=== PATIENT | female | born 1990 | race Hispanic/Latino ===

== ENCOUNTER 2019-03-18 16:40 | Emergency (ER) | payer OTHER ==
[2019-03-18 17:47] LABS: BASOPHILS % (AUTO) 0.2 % (0.0-5.0); EOSINOPHILS % (AUTO) 0.2 % (0.0-8.0); HEMATOCRIT 35.8 % (36-48); LYMPHOCYTES % (AUTO) 10.3 % (21.0-51.0); MEAN CORPUSCULAR HGB CONC 33.4 g/dL (32.0-36.0); MEAN CORPUSCULAR VOLUME 86.9 fL (79-99); MONOCYTES % (AUTO) 8.5 % (3.0-13.0); NEUTROPHILS % (AUTO) 80.8 % (40.0-77.0); PLATELET COUNT (AUTO) 175 K/uL (130-400); RED BLOOD CELL COUNT(AUTO) 4.12 MIL/uL (4.00-5.50); WHITE BLOOD COUNT (AUTO) 12.4 K/uL (4.8-10.8)
[2019-03-18 18:01] LABS: ALBUMIN 3.7 g/dL (3.5-5.0); CREATININE 0.6 mg/dL (0.5-1.5); TOTAL PROTEIN, SERUM 7.8 g/dL (6.0-8.3)
[2019-03-18 18:08] LABS: POTASSIUM 2.9 mmol/L (3.5-5.1)
[2019-03-18] MEDS ORDERED: IOHEXOL-350 50ML VIAL IV ONE (18:09)
[2019-03-18 18:10] LABS: APPEARANCE,URINE Clear (CLEAR); BILIRUBIN,URINE Negative (NEGATIVE); COLOR,URINE Yellow (YELLOW); GLUCOSE, URINE (UA) Negative (NEGATIVE); KETONES,URINE >=160 mg/dL (NEGATIVE); LEUKOCYTE ESTERASE ,URINE Negative (NEGATIVE); NITRATE,URINE Negative (NEGATIVE); OCCULT BLOOD,URINE Moderate (NEGATIVE); PH,URINE 5.5 (5.0-8.0); PROTEIN,URINE Negative (NEGATIVE)
[2019-03-18] MEDS ORDERED: POTASSIUM CHLORIDE 10% ELIXIR 20 MEQ/15 ML UDCUP ONE (18:16)
[2019-03-18 18:39] LABS: BACTERIA,URINE Few /HPF (None Seen); MUCUS,URINE Moderate LPF (None Seen); WBC,URINE None Seen /HPF (0-1)
[2019-03-18] MEDS ORDERED: MORPHINE SULFATE 4 MG/1ML SYG ONE (19:16)
[2019-03-18] MEDS ORDERED: CLINDAMYCIN 900 MG/D5% WATER 50 ML IV ONE (19:16)
[2019-03-18] MEDS ORDERED: ONDANSETRON HCL 4 MG/2 ML VIAL ONE (20:04)
== END 2019-03-18 20:34 | disposition home or self-care (01) ==
LOC: EDH 16:40
DX: K04.7 Periapical abscess without sinus (principal)
CPT/HCPCS: 36415; 70487; 80053; 81001; 81025; 85025; 87040; 96365; 96375; 99285; J2270; J2405; J3490; Q9967

== ENCOUNTER 2024-05-11 18:37 | Emergency (ER) | payer OTHER ==
[~2024-05-11] VITALS: Ht 152.4 cm; Wt 56.2 kg
[~2024-05-11 18:37] MED LIST: ACET-66 PO
[2024-05-11 19:23] LABS: APPEARANCE,URINE CLEAR (CLEAR); BILIRUBIN,URINE NEGATIVE (NEGATIVE); COLOR,URINE YELLOW (YELLOW); GLUCOSE, URINE (UA) NEGATIVE (NEGATIVE); KETONES,URINE NEGATIVE (NEGATIVE); LEUKOCYTE ESTERASE ,URINE TRACE Leu/uL (NEGATIVE); NITRATE,URINE NEGATIVE (NEGATIVE); OCCULT BLOOD,URINE MODERATE (NEGATIVE); PH,URINE 6.5 (5.0-8.0); PROTEIN,URINE NEGATIVE (NEGATIVE); UROBILINOGEN,URINE 0.2 mg/dL (0.2-1.0)
[2024-05-11 19:25] LABS: ADD UA MICROSCOPIC YES
[2024-05-11 19:27] LABS: MUCUS,URINE MANY LPF (None Seen); RBC,URINE 26-50 /HPF (0-1); SQUAMOUS EPITHELIAL CELL,UR MOD /HPF (0-2)
[2024-05-11 19:31] LABS: HCG,QUALITATIVE URINE NEGATIVE (NEGATIVE)
[2024-05-11] MEDS: CYCLOBENZAPRINE HCL 10 MG TABLET PO SCH (20:05)
[2024-05-11] MEDS: KETOROLAC 60 MG VIAL (30MG/ML) IM SCH (20:05)
[2024-05-11 20:11] VITALS: BP 107/65; PULSE 69; RESP 17; O2SAT 96
[2024-05-11] MEDS ORDERED: CYCL10TA16 PO (20:55)
[2024-05-11] MEDS ORDERED: CEPH500B PO (20:55)
[2024-05-11] MEDS ORDERED: IBUP-2070 PO (20:55)
== END 2024-05-11 21:08 | disposition home or self-care (01) ==
LOC: EDH 18:37
DX: N39.0 Urinary tract infection, site not specified (principal); M54.50 Low back pain, unspecified
CPT/HCPCS: 99283; 81001; 81025; 96372; J1885

== ENCOUNTER 2025-10-05 18:54 | Emergency (ER) | payer SELFPAY ==
[~2025-10-05] VITALS: Ht 152.4 cm; Wt 58.5 kg
[~2025-10-05 18:54] MED LIST changes: +CEPH500B PO; +CYCL10TA16 PO; +IBUP-1492 PO
[2025-10-05 18:57] VITALS: BP 115/52; PULSE 86; RESP 18; TEMP 98.2
[2025-10-05 19:15] LABS: IMMATURE GRANULOCYTE ABSOLUTE 0.02 K/uL (0-1); NUCLEATED RED BLOOD CELLS 0.0 % (0.0-0.19); PLATELET COUNT (AUTO) 225 K/uL (130-400); RED BLOOD CELL COUNT(AUTO) 4.15 MIL/uL (4.00-5.50); RED CELL DISTRIBUTION WIDTH 12.5 % (11.0-15.5); WHITE BLOOD COUNT (AUTO) 6.5 K/uL (4.8-10.8)
[2025-10-05 19:17] LABS: APPEARANCE,URINE CLEAR (CLEAR); GLUCOSE, URINE (UA) NEGATIVE (NEGATIVE); LEUKOCYTE ESTERASE ,URINE 25 Leu/uL (NEGATIVE); NITRATE,URINE NEGATIVE (NEGATIVE); OCCULT BLOOD,URINE SMALL (NEGATIVE)
[2025-10-05 19:18] LABS: ADD UA MICROSCOPIC YES
[2025-10-05 19:20] LABS: HCG,QUALITATIVE URINE NEGATIVE (NEGATIVE)
[2025-10-05 19:24] LABS: CREATININE 0.5 mg/dL (0.5-1.0); GLOMERULAR FILTR. RATE CALC 126.0 mL/min (>90); GLUCOSE,RANDOM 102.0 mg/dL (70-105); SODIUM SERUM 136.0 mmol/L (136-145); UREA NITROGEN, BLOOD 13.0 mg/dL (7-18)
[2025-10-05 19:27] LABS: SQUAMOUS EPITHELIAL CELL,UR Rare /HPF (0-2)
--- NOTE | 2025-10-05 20:15 | ERN ---
ED Note History of Present Illness Stated Complaint: ABD PAIN Chief Complaint: Abdominal Pain Time Seen by MD: 18:57 Time Seen by Midlevel: 18:57 Dictation: The patient is a 35-year-old female with a history of hypothyroidism who presents to the emergency department with complaints of pelvic pain, and some vaginal spotting onset a month ago. Patient denies any fevers, denies any nausea or vomiting, denies any flank pain. Allergies: Coded Allergies: No Known Allergies (Unverified Allergy, Unknown, 02/28/23) Uncoded Allergies: NKDA (Allergy, Unknown, 03/18/19) Home Meds Active Scripts Cephalexin Monohydrate (Keflex) 500 Mg Cap, 500 MG PO BID for 5 Days, #10 CAP Prov:ALFONSO MARTINS MD 05/11/24 Cyclobenzaprine HCl (Flexeril) 10 Mg Tab, 10 MG PO TID for muscle sstiffness, #14 TAB 0 Refills Prov:ALFONSO MARTINS MD 05/11/24 Ibuprofen (Ibuprofen) 600 Mg Tablet, 600 MG PO Q6H PRN for PAIN, #15 TAB Prov:ALFONSO MARTINS MD 05/11/24 Acetaminophen (Tylenol) 500 Mg Tab, 500 MG PO Q6HPRN PRN for PAIN LEVEL 1 TO 5 for 10 Days, #30 TAB Prov:TYE AIKEN MD 08/10/21 Past Medical History Past Medical History: Anxiety, Hypothyroid Surgical History: None History: Not Applicable LMP: Sep 20, 2025 : 3 Para: 3 Aborts: 0 RN Note Reviewed/Agreed w/PFSH: Yes Review of System Dictation Constitutional: Negative for fever,chills, and weight loss Eyes: Negative for injury, pain,redness, and discharge ENT: Negative for injury,pain or swelling Cardiovascular: Negative for chest pain, palpitations, and edema Respiratory: Negative for shortness of breath, cough, and wheezing, Abdomen/GI: Negative for nausea, vomiting, diarrhea, and constipation positive for lower abdominal pain Back: Negative for injury and pain : Negative for injury, bleeding and discharge MS/Extremity: Negative for injury and deformity Skin: Negative for rash, and discoloration Neuro: Negative for headache, weakness, numbness, tingling, and seizure Psych: Negative for suicide ideation, homicidal ideation, and hallucinations Initial Vital Sign VS Vital Signs Date Time Temp Pulse Resp B/P (MAP) Pulse Ox O2 Delivery O2 Flow Rate FiO2 10/05/25 18:57 98.2 86 18 115/52 99 Room Air 0 Physical Exam Dictation Vital Signs reviewed General Appearance: Alert, oriented x 3, no acute distress, well developed, nourished. Head and Face: non-traumatic. Eyes: PERRL, pink conjunctivas, eyelid no trauma, anterior chamber with arcus senilis. Ears: Pinnas intact and no signs of trauma or erythema ear canals clear and no discharge TM no erythema Nose: No discharge, no bleeding. Oropharynx: Mouth normal, tongue pink. pharynx clear,no erythema, tonsils no exudates, no abscesses noted, mucous membrane moist Neck: Supple, non-tender, no thyromegaly, no masses, no JVD, no bruits Breast:Deferred Chest:No tenderness, no crepitus, no paradoxical movement, no retractions Lungs:Clear, well-ventilated, symmetric, no rales, no wheezing, no rhonchi, no stridor, good breath sounds bilaterally Heart: Regular rate, regular rhythm, no murmur, no gallops Vascular: no peripheral edema, Abdomen: Soft, positive bowel sounds, nondistended, no guarding, nontender, no rebound, no masses no hepatomegaly, no splenomegaly, no Shields's sign, no hernias. Rectal: Deferred Genital: Deferred Neurological: Normal speech, motor function intact, sensory function intact Musculoskeletal: Neck nontender, full range of motion, back nontender, full range of motion, Extremities: nontender, full range of motion Skin: Color pink, dry, no turgor, no rash, no lacerations, no abrasions, no contusions. Lymphatic: Deferred Results (Laboratory/Radiology) Laboratory/Radiology Laboratory Tests Test 10/05/25 19:06 10/05/25 19:08 White Blood Count 6.5 K/uL (4.8-10.8) Red Blood Count 4.15 MIL/uL (4.00-5.50) Hemoglobin 12.1 g/dL (12.0-16.0) Hematocrit 36.5 % (36-48) Mean Corpuscular Volume 88.0 fL (79-99) Mean Corpuscular Hemoglobin 29.2 pg (27.0-33.0) Mean Corpuscular Hemoglobin Concent 33.2 g/dL (32.0-36.0) Red Cell Distribution Width 12.5 % (11.0-15.5) Platelet Count 225 K/uL (130-400) Mean Platelet Volume 10.8 fL (7.5-10.5) H Immature Granulocyte % (Auto) 0.3 % (0-1) Neutrophils (%) (Auto) 59.9 % (40.0-77.0) Lymphocytes (%) (Auto) 30.0 % (21.0-51.0) Monocytes (%) (Auto) 8.7 % (3.0-13.0) Eosinophils (%) (Auto) 0.8 % (0.0-8.0) Basophils (%) (Auto) 0.3 % (0.0-5.0) Neutrophils # (Auto) 3.9 K/uL (1.8-7.7) Lymphocytes # (Auto) 1.9 K/uL (1.0-4.8) Monocytes # (Auto) 0.6 K/uL (0.1-1.0) Eosinophils # (Auto) 0.05 K/uL (0.00-0.70) Basophils # (Auto) 0.02 K/uL (0.00-0.20) Absolute Immature Granulocyte (auto 0.02 K/uL (0-1) Nucleated Red Blood Cells 0.0 % (0.0-0.19) Sodium Level 136 mmol/L (136-145) Potassium Level 3.7 mmol/L (3.5-5.1) Chloride Level 101 mmol/L (101-111) Carbon Dioxide Level 28 mmol/L (21-32) Blood Urea Nitrogen 13 mg/dL (7-18) Creatinine 0.5 mg/dL (0.5-1.0) Glomerular Filtration Rate Calc 126 mL/min (>90) Random Glucose 102 mg/dL (70-105) Total Calcium 8.6 mg/dL (8.5-10.1) Urine Color LIGHT-YELLOW (YELLOW) Urine Appearance CLEAR (CLEAR) Urine pH 7.0 (5.0-8.0) Urine Specific [place] 1.024 (1.001-1.031) Urine Protein NEGATIVE mg/dL (NEGATIVE) Urine Glucose (UA) NEGATIVE mg/dL (NEGATIVE) Urine Ketones NEGATIVE mg/dL (NEGATIVE) Urine Occult Blood SMALL (NEGATIVE) H Urine Nitrate NEGATIVE (NEGATIVE) Urine Bilirubin NEGATIVE mg/dL (NEGATIVE) Urine Urobilinogen 3 mg/dL (0.2-1.0) H Urine Leukocyte Esterase 25 Lee/uL (NEGATIVE) H Urine RBC 2-5 /HPF (0-1) H Urine WBC 2-5 /HPF (0-1) H Urine Squamous Epithelial Cells Rare /HPF (0-2) Urine Bacteria Rare /HPF (None Seen) Urine HCG, Qualitative NEGATIVE (NEGATIVE) REASON: pelvic pain ORDERING PHYSICIAN: YVETTE MARTINS PROCEDURE: PELVCOMP - US PELVIC NON-OB COMP EXAMINATION: COMPLETE TRANSABDOMINAL ULTRASOUND OF PELVIS. CLINICAL HISTORY: Pain. COMPARISON: None provided. TECHNIQUE: Multiple real-time grayscale images of the pelvis were obtained with a transabdominal transducer. In addition, color Doppler is medically necessary to perform to assess for vascularity and blood flow. FINDINGS: The uterus is anteverted, normal in caliber, and measures 9.4 x 4.3 x 5.3 cm in the craniocaudal, AP, and transverse dimensions, respectively. The endometrium measures approximately 0.6 cm. Cervix appears normal. The right ovary is normal in caliber and measures 2.2 x 1.3 x 1.5 cm. There are multiple follicles; the largest measures 0.7 x 0.6 cm. The left ovary is normal in caliber and measures 2.2 x 1.3 x 1.7 cm. There are multiple follicles; the largest measures 0.6 x 0.6 cm. The vascularity of the ovaries is present; no torsion. There is no free fluid in the cul-de-sac. IMPRESSION: Bilateral ovarian follicular cysts. No acute process or ovarian torsion is evident. /[facility] Labs Reviewed?: Yes ED Course ED Course Orders Procedure Category Date Status Time Cbc With Differential LAB 10/05/25 Complete 18:58 ,Urine Test LAB 10/05/25 Complete 18:58 Urinalysis Profile LAB 10/05/25 Complete 18:58 Basic Metabolic Panel LAB 10/05/25 Complete 18:58 Acetaminophen 500mg PHA 10/05/25 Complete Tab (Tylenol 500mg T 19:00 Us Pelvic Non-Ob Comp US 10/05/25 Resulted 18:58 Current Medications Medications (Trade) Dose Ordered Sig/Swapnil Route PRN Reason Start Time Stop Time Status Last Admin Dose Admin Acetaminophen (TYLenol 500MG TAB) 1,000 mg ONCE ONCE PO 10/05/25 19:00 10/05/25 19:01 DC 10/05/25 20:06 Vital Signs Date Time Temp Pulse Resp B/P (MAP) Pulse Ox O2 Delivery O2 Flow Rate FiO2 10/05/25 18:57 98.2 86 18 115/52 99 Room Air 0 Medical Decision Making MDM The patient is a 35-year-old female with a history of hypothyroidism who presents to the emergency department with complaints of pelvic pain, and some vaginal spotting onset a month ago. Patient denies any fevers, denies any nausea or vomiting, denies any flank pain. CBC showed no leukocytosis, no anemia, chemistry showed no electrolyte imbalance, urinalysis showed small leukocyte and wbc. OB US showed bilateral ovarian follicular cyst. No ovarian torsion. On physical exam patient is in no acute distress, non toxic appearance, soft nontender abd. Patient will be discharge to follow up with PCP and obgyn. Differential diagnosis: UTI, , uterine fibroids, ovarian cyst Need for hospitalization: Patient does not meet criteria for hospitalization. There are no social concerns with this patient. DX & DISP Disposition: Discharge Departure Impression: Primary Impression: Follicular cyst of both ovaries Additional Impressions: UTI (urinary tract infection), Pelvic pain Condition: Stable Scripts Ibuprofen (Ibuprofen) 600 Mg Tablet 1 TAB PO TID for pain for 5 Days, #30 TAB 0 Refills with food Prov: YVETTE MARTINS [employer] DEVELOPER 10/05/25 Nitrofurantoin Monohyd/M-Cryst (Macrobid 100 mg Capsule) 100 Mg Capsule 1 CAP PO BID for 5 Days, #10 CAP 0 Refills Prov: YVETTE MARTINS 10/05/25 Additional Instructions: FOLLOW-UP WITH PRIMARY CARE PROVIDER IN 1 TO 2 DAYS. TAKE MEDICATIONS DIRECTED HERE IN THE EMERGENCY ROOM. OKAY TO CONTINUE HOME MEDICATIONS UNLESS OTHERWISE DISCUSSED DURING YOUR VISIT IN THE EMERGENCY ROOM TODAY. RETURN TO YOUR NEAREST EMERGENCY ROOM IF SYMPTOMS WORSEN OR IF THERE IS NO IMPROVEMENT. CALL 911 IF YOU NEED IMMEDIATE ASSISTANCE. TAKE TYLENOL [id number] NEEDED AND IF NO CONTRAINDICATIONS ARE PRESENT. INCREASE ORAL HYDRATION. A WOUND CULTURE OR URINE CULTURE WAS ORDERED HERE IN THE EMERGENCY ROOM DEPARTMENT PLEASE FOLLOW-UP WITH PRIMARY CARE PROVIDER AND ADVISE THEM TO GET REPEAT PORTS FROM OUR FACILITY. IF YOU HAD ANY EUN WRAP/SPLINTS THAT WERE APPLIED HERE, PLEASE DO NOT REMOVE THEM UNTIL YOU SEE YOUR PRIMARY CARE OR SPECIALTY. Referrals: SELF,REFERRAL (PCP) Time of Disposition: 20:51 I have reviewed the case, and I agree with, Diagnosis and Plan YVETTE MARTINS [employer] DEVELOPER Oct 05, 2025 20:15
--- NOTE | 2025-10-05 20:36 | HMCIMG ---
EXAMINATION: COMPLETE TRANSABDOMINAL ULTRASOUND OF PELVIS. CLINICAL HISTORY: Pain. COMPARISON: None provided. TECHNIQUE: Multiple real-time grayscale images of the pelvis were obtained with a transabdominal transducer. In addition, color Doppler is medically necessary to perform to assess for vascularity and blood flow. FINDINGS: The uterus is anteverted, normal in caliber, and measures 9.4 x 4.3 x 5.3 cm in the craniocaudal, AP, and transverse dimensions, respectively. The endometrium measures approximately 0.6 cm. Cervix appears normal. The right ovary is normal in caliber and measures 2.2 x 1.3 x 1.5 cm. There are multiple follicles; the largest measures 0.7 x 0.6 cm. The left ovary is normal in caliber and measures 2.2 x 1.3 x 1.7 cm. There are multiple follicles; the largest measures 0.6 x 0.6 cm. The vascularity of the ovaries is present; no torsion. There is no free fluid in the cul-de-sac. IMPRESSION: Bilateral ovarian follicular cysts. No acute process or ovarian torsion is evident. /[place]
[2025-10-05] MEDS ORDERED: NITR100C4 PO (20:52)
[2025-10-05] MEDS ORDERED: IBUP-1492 PO (20:52)
== END 2025-10-05 20:58 | disposition home or self-care (01) ==
LOC: EDH 18:54
DX: N83.01 Follicular cyst of right ovary (principal); N83.02 Follicular cyst of left ovary; N39.0 Urinary tract infection, site not specified; E03.9 Hypothyroidism, unspecified
CPT/HCPCS: 36415; 76856; 80048; 81001; 81025; 85025; 99284